=== PATIENT | female | born 1975 | race Caucasian/White ===

== ENCOUNTER 2018-08-04 10:58 | Outpatient (CLI) | payer OTHER ==
[2018-08-04 12:35] VITALS: BP 136/73; PULSE 125; RESP 18; TEMP 98.1
--- NOTE | 2018-08-12 12:45 | P.MSEPDOC ---
Presenting Problems - Arrival Data Date of Arrival on Unit: 08/04/18 Time of Arrival on Unit: 10:59 Mode of Transport: Ambulatory - Complaint Comment: nausea r/t to suboxone withdrawl Medical History - Information : 8 Para: 4 Term: 4 : 0 Abortions: Spontaneous or Elective: 3 Number of Living Children: 4 - Gestational Age Gestational Age by MARIALUISA (wks/days): 27 Weeks and 2 Days - History Complications: Multiple , Hx. Substance Abuse Review of Systems - Review of Systems Constitutional: No problems Breast: No problems ENT: No problems Cardiovascular: No problems Respiratory: No problems Gastrointestinal: No problems Genitourinary: No problems Musculoskeletal: No problems Neurological: No problems Skin: No problems Vital Signs - Temperature Temperature: 98.1 F Temperature Source: Temporal Artery Scan - Pulse Pulse Oximetery Pulse Rate: 125 Pulse Assessment Method: Pulse Oximetry - Respirations Respiratory Rate: 18 Oxygen Delivery Method: Room Air - Blood Pressure Right Arm Blood Pressure: 136/73 Blood Pressure Mean: 94 Blood Pressure Source: Automatic Cuff Medical Screen Scoring (Pre) - Cervical Exam Dilation: Exam Deferred Effacement: Exam Deferred - Uterine Contractions Frequency: N/A Duration: N/A Intensity: N/A - Maternal Vital Signs Maternal Temperature: N/A Maternal Blood Pressure: N/A Signs of Preeclampsia: N/A Maternal Respirations: N/A - Maternal Trauma Maternal Trauma: N/A - Assessment - Baby A Baseline FHR: 150 Heart Rate - NICHD Category: Category I (Normal) = 0 NST: Reactive Position: N/A - Total Score - Baby A Total Score - Baby A: 0 - Level of Risk - Baby A Level of Risk - Baby A: Low (0-5) - Pain Assessment Pain Scale Used: Numeric (1 - 10) Pain Intensity: 0 Physician Notification (Pre) - Physician Notified Physician Notified Date: 08/04/18 Physician Notified Time: 11:52 Physician/Practitioner Notifed:: dedra Spoke With: dedra New Order Received: Yes - Notification Comment Comment: reported pt visit r/t nausea from possible withdrawl from suboxone. reported twin with reactive strip and no contractions, v/s wnl. pt may be discharged home follow up with psychiatrist and OB Disposition - Disposition OB Disposition: Discharge to home Discharge Date: 08/04/18 Discharge Time: 12:05 I agree with the RN Medical Screening Exam: Yes Risk & Benefit of care provided described in d/c instruction: Yes Diagnosis: OTHER SPECIFIED COMPLICATIONS OF LABOR AND DELIVERY
== END 2018-08-04 12:05 | disposition home or self-care (01) ==
LOC: FBPOP 10:58
PROVIDERS: ATTEND Obstetrics & Gynecology Obstetrics
DX: O75.89 Other specified complications of labor and delivery (principal); Z3A.27 27 weeks gestation of pregnancy
CPT/HCPCS: 99213

== ENCOUNTER 2018-08-04 14:18 | Emergency (ER) | payer BC, OTHER ==
[2018-08-04 14:25] VITALS: BP 139/77; PULSE 99; RESP 18; TEMP 98.2
[2018-08-04] MEDS ORDERED: cloNIDine 0.3 MG/24HR PATCH TRANSDERM STA (14:42)
[2018-08-04] MEDS ORDERED: METOCLOPRAMIDE 10 MG TAB PO STA (14:45)
--- NOTE | 2018-08-04 15:12 | ED ---
General Adult HPI - General Chief complaint: Anxiety Stated complaint: Withdrawls Time Seen by Provider: 08/04/18 14:26 Source: patient, RN notes reviewed Mode of arrival: ambulatory Limitations: no limitations - History of Present Illness Initial comments: 42-year-old female currently 27 weeks with a twin gestation presents to the emergency department for a chief complaint of Suboxone withdraws. Patient states that she has been taking Suboxone off of the streets. States that she saw her psychiatrist approximately 5 days ago about this. States this was when she last used. Patient and her psychiatrist did not think she would have withdrawals as she was taking a low dose. Therefore she was prescribed naltrexone which she has not taken yet. Patient states she is nauseous having minimal vomiting. Minimal diarrhea. States she is drinking water at home. Mildly anxious. No other complaints at this time.Patient has no other compla ints at this time including shortness of breath, chest pain, abdominal pain, headache, or visual changes. - Related Data Home Medications Medication Instructions Recorded Confirmed FLUoxetine HCL [PROzac] 1 cap PO DAILY 08/04/18 08/04/18 lamoTRIgine [LaMICtal] 25 mg PO DAILY 08/04/18 08/04/18 Allergies Allergy/AdvReac Type Severity Reaction Status Date / Time Penicillins Allergy Unknown Verified 08/04/18 14:25 Review of Systems ROS Statement: Those systems with pertinent positive or pertinent negative responses have been documented in the HPI. ROS Other: All systems not noted in ROS Statement are negative. Past Medical History Past Medical History: Asthma History of Any Multi-Drug Resistant Organisms: None Reported Past Surgical History: Section, Orthopedic Surgery Past Psychological History: No Psychological Hx Reported Smoking Status: Current every day smoker Past Alcohol Use History: None Reported Past Drug Use History: Prescription Drug Abuse General Exam Limitations: no limitations General appearance: alert, in no apparent distress Head exam: Present: atraumatic, normocephalic, normal inspection Eye exam: Present: normal appearance, PERRL, EOMI. Absent: scleral icterus, conjunctival injection, periorbital swelling ENT exam: Present: normal exam, normal oropharynx, mucous membranes moist, TM's normal bilaterally, normal external ear exam Neck exam: Present: normal inspection, full ROM. Absent: tenderness, meningismus, lymphadenopathy Respiratory exam: Present: normal lung sounds bilaterally. Absent: respiratory distress, wheezes, rales, rhonchi, stridor Cardiovascular Exam: Present: regular rate, normal rhythm, normal heart sounds. Absent: systolic murmur, diastolic murmur, rubs, gallop, clicks GI/Abdominal exam: Present: soft, normal bowel sounds. Absent: distended, tenderness, guarding, rebound, rigid Neurological exam: Present: alert, oriented X3, CN II-XII intact Psychiatric exam: Present: normal affect, normal mood Course Vital Signs 08/04/18 14:20 Temperature 98.2 F Pulse Rate 99 Respiratory 18 Rate Blood Pressure 139/77 O2 Sat by Pulse 98 Oximetry Medical Decision Making - Medical Decision Making 42-year-old female presents to the emergency department for a chief complaint of Suboxone withdrawals. Patient has not used since Sunday. She has mild nausea with only a few episodes of vomiting. Mild diarrhea. No other significant complaints. Exam is unremarkable. Patient does not appear dehydrated. Discussed case with Dr. Bean. At this point patient will be given clonidine patch which is safe in . She was also given Reglan here. Currently orally hydrating. She will follow up with her [facility] psychiatrist. She was also given referrals for substance use progressed. Patient currently in a program through [facility]. She will return here should she have any worsening symptoms. Disposition Clinical Impression: Opioid withdrawal Disposition: HOME SELF-CARE Condition: Good Instructions (If sedation given, give patient instructions): Generalized Anxiety Disorder (ED), Opioid Withdrawal (ED) Additional Instructions: Please remove patch in 24 hours. Please follow-up with psychiatry an [facility] tomorrow. Return here if you have any worsening symptoms. Is patient prescribed a controlled substance at d/c from ED?: No Referrals: Eduardo Brewer DO [Primary Care Provider] - 1-2 days Time of Disposition: 15:11
== END 2018-08-04 15:15 | disposition home or self-care (01) ==
LOC: EC 14:18
DX: O99.322 Drug use complicating pregnancy, second trimester (principal); F11.23 Opioid dependence with withdrawal; O99.332 Smoking (tobacco) complicating pregnancy, second trimester; F17.200 Nicotine dependence, unspecified, uncomplicated; Z79.899 Other long term (current) drug therapy; Z88.0 Allergy status to penicillin; Z3A.27 27 weeks gestation of pregnancy
CPT/HCPCS: 99283

== ENCOUNTER 2019-10-16 16:26 | Emergency (ER) | payer BC, OTHER ==
[2019-10-16] MEDS ORDERED: SODIUM CHLORIDE 0.9% 1,000 ML IV STA (16:52)
[2019-10-16] MEDS ORDERED: ACETAMINOPHEN TAB 325 MG TAB PO STA (16:52)
[2019-10-16 17:32] VITALS: RESP 16
[2019-10-16 17:48] LABS: Basophils % (A) 1 %; Eosinophils # (A) 0.3 k/uL (0-0.7); Eosinophils % (A) 5 %; HGB 14.1 gm/dL (11.4-16.0); Lymphocytes # (A) 1.2 k/uL (1.0-4.8); Lymphocytes % (A) 22 %; MCH 31.9 pg (25.0-35.0); MCHC 32.8 g/dL (31.0-37.0); MCV 97.2 fL (80.0-100.0); Mean Platelet Volume 9.4; Monocytes # (A) 0.4 k/uL (0-1.0); Monocytes % (A) 7 %; Neutrophils # (A) 3.5 k/uL (1.3-7.7); Neutrophils % (A) 65 %; Platelet Count 179 k/uL (150-450); RBC 4.42 m/uL (3.80-5.40); WBC 5.4 k/uL (3.8-10.6)
[2019-10-16 17:54] LABS: Appearance,Urine Clear (Clear); Bacteria,Urine Rare /hpf; Bilirubin,Urine Negative (Negative); Blood,Urine Negative (Negative); Color,Urine Dark Yellow; Glucose,Urine (UA) Negative (Negative); Ketones,Urine Negative (Negative); Leukocyte Esterase,Urine Negative (Negative); Mucus,Urine Many /hpf; Nitrite,Urine Positive (Negative); Protein,Urine Negative (Negative); RBC,Urine <1 /hpf (0-5); Specific Gravity,Urine 1.017 (1.001-1.035); Squamous Epithelial Cell,Urine <1 /hpf (0-4); WBC,Urine 3 /hpf (0-5)
[2019-10-16 18:08] LABS: ALT 16 U/L (4-34); AST 22 U/L (14-36); African American GFR (CKD) >90 (>60 ml/min/1.73 sqM); Albumin 4.1 g/dL (3.5-5.0); Alkaline Phosphatase 62 U/L (38-126); Anion Gap 6 mmol/L; Blood Urea Nitrogen 9 mg/dL (7-17); Calcium 9.4 mg/dL (8.4-10.2); Carbon Dioxide 27 mmol/L (22-30); Chloride 104 mmol/L (98-107); Glucose 111 mg/dL (74-99); Lipase 27 U/L (23-300); Non-African American GFR(CKD) >90 (>60 ml/min/1.73 sqM); Potassium 4.2 mmol/L (3.5-5.1); Sodium 137 mmol/L (137-145); Total Bilirubin 0.4 mg/dL (0.2-1.3); Total Protein 6.8 g/dL (6.3-8.2)
[2019-10-16] MEDS ORDERED: methylPREDNISolone SOD SUCCI 125 MG/2 ML VIAL IV STA (18:35)
[2019-10-16] MEDS ORDERED: diphenhydrAMINE 50 MG/ML 1 ML VIAL IVP STA (18:35)
[2019-10-16] MEDS ORDERED: FAMOTIDINE 20 MG/2 ML VIAL IV STA (18:35)
[2019-10-16] MEDS ORDERED: cefTRIAXone IN SWFI 1,000 MG/10 ML SYRINGE IVP STA (18:41)
[2019-10-16] MEDS ORDERED: ONDANSETRON 4 MG/2 ML VIAL IVP STA ×2 (19:02→19:07)
--- NOTE | 2019-10-16 19:08 | ED ---
General Adult HPI - General Chief complaint: Back Pain/Injury Stated complaint: Back Pain Time Seen by Provider: 10/16/19 16:34 Source: patient, RN notes reviewed, old records reviewed Mode of arrival: ambulatory Limitations: no limitations - History of Present Illness Initial comments: 44-year-old female patient presents to ED with chief complaint right lower quadrant pain and right flank pain. Patient reports the symptoms started last 2 days. Denies any urinary symptoms. Denies any new sexual partners concern for STD. Denies any blood in urine. Denies any other acute complaints. Systemic: Pt denies fatigue, fever/chills, rash. Pt denies weakness, night sweats, weight loss. Neuro: Pt denies headache, visual disturbances, syncope or pre-syncope. HEENT: Pt denies ocular discharge or irritation, otalgia, rhinorrhea, pharyngitis or notable lymphadenopathy. Cardiopulmonary: Pt denies chest pain, SOB, heart palpitations, dyspnea on exertion. Abdominal/GI: Pt denies n/v/d. : Pt denies dysuria, burning w/ urination, frequency/urgency. Denies new onset urinary or bowel incontinence. MSK: Pt denies myalgia, loss of strength or function in extremities. Neuro: Pt denies new onset weakness, paresthesias. - Related Data Home Medications Medication Instructions Recorded Confirmed Cholecalciferol [Vitamin D3 (25 1,000 unit PO DAILY 08/04/18 08/04/18 Mcg = 1000 Iu)] FLUoxetine HCL [PROzac] 20 mg PO HS 08/04/18 08/04/18 Melatonin 3 mg PO HS PRN 08/04/18 08/04/18 Naltrexone HCl [Revia] 50 mg PO HS 08/04/18 08/04/18 Pnv,Calcium 72/Iron/Folic Acid 1 tab PO DAILY 08/04/18 08/04/18 [ Plus Tablet] lamoTRIgine [LaMICtal] See Taper PO DIRECTED 08/04/18 08/04/18 Previous Rx's Medication Instructions Recorded Cephalexin [Keflex] 500 mg PO Q6HR 7 Days #28 cap 10/16/19 Allergies Allergy/AdvReac Type Severity Reaction Status Date / Time Iodinated Contrast Media Allergy Anaphylaxis Verified 10/16/19 18:58 Penicillins Allergy Unknown Verified 10/16/19 16:32 Review of Systems ROS Statement: Those systems with pertinent positive or pertinent negative responses have been documented in the HPI. ROS Other: All systems not noted in ROS Statement are negative. Past Medical History Past Medical History: Asthma History of Any Multi-Drug Resistant Organisms: None Reported Past Surgical History: Section, Orthopedic Surgery Past Psychological History: No Psychological Hx Reported Smoking Status: Current every day smoker Past Alcohol Use History: Occasional Past Drug Use History: Marijuana General Exam - General Exam Comments Initial Comments: Constitutional: NAD, AOX3, Pt has pleasant affect. HEENT: NC/AT, trachea midline, neck supple, no lymphadenopathy. External ears appear normal, without discharge. Mucous membranes moist. EOM intact. There is no scleral icterus. No pallor noted. Cardiopulmonary: RRR, no murmurs, rubs or gallops, no JVD noted. Lungs CTAB in anterior and posterior izquierdo. No peripheral edema. Abdominal exam: Abdomen soft and non-distended. Abdomen mildly tender to palpation RLQ. Bowel sounds active in LLQ. No hepatosplenomegaly. No ecchymosis. No CVA tenderness. No focal area of tenderness to parathoracic or lumbar region. Neuro: CN II-XII grossly intact. No nuchal rigidity. MSK: Full active ROM in upper and lower extremities, 5/5 stregnth. Distal pulses intact and equal, sensation intact. Limitations: no limitations Course Vital Signs 10/16/19 10/16/19 10/16/19 16:29 17:15 19:51 Temperature 98.5 F 98.4 F 98.2 F Pulse Rate 66 86 53 L Respiratory 18 16 16 Rate Blood Pressure 117/67 124/78 134/65 O2 Sat by Pulse 99 99 99 Oximetry Medical Decision Making - Medical Decision Making 44-year-old female patient presents to ED for evaluation of right lower quadrant pain and right flank pain. Ongoing for the last 2 days. Denies any other complaints. His exam displayed very mild amount tenderness. Laboratory investigations are obtained are significant for nitrite positive urine. CT abdomen and pelvis with mild sigmoid diverticulosis no evidence of diverticulitis. Normal appendix no renal stone or obstruction. Noted also has L5-S1 spondylolisthesis and bilateral L5 spondylolysis. Patient will be treated for urinary tract infection with Keflex. Will follow up with primary care provider tomorrow. Also given orthopedic follow-up or return to ER if any worsening symptoms. Case discussed with Dr. London. - Lab Data Result diagrams: 10/16/19 17:23 10/16/19 17:23 Lab Results 10/16/19 10/16/19 10/16/19 Range/Units 17:23 17:23 17:23 WBC 5.4 (3.8-10.6) k/uL RBC 4.42 (3.80-5.40) m/uL Hgb 14.1 (11.4-16.0) gm/dL Hct 43.0 (34.0-46.0) % MCV 97.2 (80.0-100.0) fL MCH 31.9 (25.0-35.0) pg MCHC 32.8 (31.0-37.0) g/dL RDW 12.0 (11.5-15.5) % Plt Count 179 (150-450) k/uL Neutrophils % 65 % Lymphocytes % 22 % Monocytes % 7 % Eosinophils % 5 % Basophils % 1 % Neutrophils # 3.5 (1.3-7.7) k/uL Lymphocytes # 1.2 (1.0-4.8) k/uL Monocytes # 0.4 (0-1.0) k/uL Eosinophils # 0.3 (0-0.7) k/uL Basophils # 0.0 (0-0.2) k/uL Sodium (137-145) mmol/L Potassium (3.5-5.1) mmol/L Chloride (98-107) mmol/L Carbon Dioxide (22-30) mmol/L Anion Gap mmol/L BUN (7-17) mg/dL Creatinine (0.52-1.04) mg/dL Est GFR (CKD-EPI)AfAm (>60 ml/min/1.73 sqM) Est GFR (CKD-EPI)NonAf (>60 ml/min/1.73 sqM) Glucose (74-99) mg/dL Plasma Lactic Acid Royce (0.7-2.0) mmol/L Calcium (8.4-10.2) mg/dL Total Bilirubin (0.2-1.3) mg/dL AST (14-36) U/L ALT (4-34) U/L Alkaline Phosphatase (38-126) U/L Total Protein (6.3-8.2) g/dL Albumin (3.5-5.0) g/dL Lipase (23-300) U/L Urine Color Dark Yellow Urine Appearance Clear (Clear) Urine pH 8.0 (5.0-8.0) Ur Specific [place] 1.017 (1.001-1.035) Urine Protein Negative (Negative) Urine Glucose (UA) Negative (Negative) Urine Ketones Negative (Negative) Urine Blood Negative (Negative) Urine Nitrite Positive H (Negative) Urine Bilirubin Negative (Negative) Urine Urobilinogen 2.0 (<2.0) mg/dL Ur Leukocyte Esterase Negative (Negative) Urine RBC <1 (0-5) /hpf Urine WBC 3 (0-5) /hpf Ur Squamous Epith Cells <1 (0-4) /hpf Urine Bacteria Rare H (None) /hpf Urine Mucus Many H (None) /hpf Urine HCG, Qual Not Detected (Not Detectd) 10/16/19 10/16/19 Range/Units 17:23 17:23 WBC (3.8-10.6) k/uL RBC (3.80-5.40) m/uL Hgb (11.4-16.0) gm/dL Hct (34.0-46.0) % MCV (80.0-100.0) fL MCH (25.0-35.0) pg MCHC (31.0-37.0) g/dL RDW (11.5-15.5) % Plt Count (150-450) k/uL Neutrophils % % Lymphocytes % % Monocytes % % Eosinophils % % Basophils % % Neutrophils # (1.3-7.7) k/uL Lymphocytes # (1.0-4.8) k/uL Monocytes # (0-1.0) k/uL Eosinophils # (0-0.7) k/uL Basophils # (0-0.2) k/uL Sodium 137 (137-145) mmol/L Potassium 4.2 (3.5-5.1) mmol/L Chloride 104 (98-107) mmol/L Carbon Dioxide 27 (22-30) mmol/L Anion Gap 6 mmol/L BUN 9 (7-17) mg/dL Creatinine 0.60 (0.52-1.04) mg/dL Est GFR (CKD-EPI)AfAm >90 (>60 ml/min/1.73 sqM) Est GFR (CKD-EPI)NonAf >90 (>60 ml/min/1.73 sqM) Glucose 111 H (74-99) mg/dL Plasma Lactic Acid Royce 1.1 (0.7-2.0) mmol/L Calcium 9.4 (8.4-10.2) mg/dL Total Bilirubin 0.4 (0.2-1.3) mg/dL AST 22 (14-36) U/L ALT 16 (4-34) U/L Alkaline Phosphatase 62 (38-126) U/L Total Protein 6.8 (6.3-8.2) g/dL Albumin 4.1 (3.5-5.0) g/dL Lipase 27 (23-300) U/L Urine Color Urine Appearance (Clear) Urine pH (5.0-8.0) Ur Specific [place] (1.001-1.035) Urine Protein (Negative) Urine Glucose (UA) (Negative) Urine Ketones (Negative) Urine Blood (Negative) Urine Nitrite (Negative) Urine Bilirubin (Negative) Urine Urobilinogen (<2.0) mg/dL Ur Leukocyte Esterase (Negative) Urine RBC (0-5) /hpf Urine WBC (0-5) /hpf Ur Squamous Epith Cells (0-4) /hpf Urine Bacteria (None) /hpf Urine Mucus (None) /hpf Urine HCG, Qual (Not Detectd) Disposition Clinical Impression: UTI (urinary tract infection), Flank pain Disposition: HOME SELF-CARE Condition: Stable Instructions (If sedation given, give patient instructions): Urinary Tract Infection in Women (ED), Flank Pain (ED) Additional Instructions: Taken antibiotics as directed. Follow up with PCP tomorrow. Follow up with orthopedic consult tomorrow. Return to ED with any worsening symptoms. Prescriptions: Cephalexin [Keflex] 500 mg PO Q6HR 7 Days #28 cap Is patient prescribed a controlled substance at d/c from ED?: No Referrals: Eduardo Brewer DO [Primary Care Provider] - 1-2 days Lazaro Lincoln PAC [PHYSICIAN [employer]] - 1-2 days
--- NOTE | 2019-10-16 19:24 | CT ---
EXAMINATION TYPE: CT abdomen pelvis w con DATE OF EXAM: 10/16/2019 COMPARISON: None HISTORY: Flank pain CT DLP: 1410.8 mGycm Automated exposure control for dose reduction was used. CONTRAST: Performed with IV Contrast, patient injected with 100 mL of Isovue 300. Lung bases are clear. There is no pleural effusion. Heart size is normal. Liver spleen stomach pancreas gallbladder appear normal. Bile ducts are not dilated. There is no adrenal mass. Kidneys show satisfactory contrast opacification. There is no hydronephrosi s. Ureters are not dilated. There is 1.5 cm cortical cyst medial right kidney. There is no retroperit lee adenopathy. Bladder distends smoothly. Uterus is anteverted. There is no evidence of a pelvic m ass. There is no free fluid in the pelvis. There is a first-degree L5-S1 spondylolisthesis. There is bilateral L5 spondylolysis. Delayed images show normal renal excretion. Bony pelvis is intact. Hip joints appear normal. There is no mesenteric edema. There is no ascites or free air. There is no sign of a bowel obstructio n. There are multiple sigmoid diverticula. There is no sign of diverticulitis. Appendix is posterior and medial and appears normal. IMPRESSION: Mild sigmoid diverticulosis. No evidence of diverticulitis. Normal appendix. No renal stone or obstru ction.
[2019-10-16] MEDS ORDERED: SODIUM CHLORIDE 0.9% 500 ML 500 ML IV ONE (19:38)
[2019-10-16] MEDS ORDERED: KETOROLAC 15 MG/ML 1 ML VIAL IVP STA (19:42)
[2019-10-16 19:53] VITALS: BP 134/65; PULSE 53; TEMP 98.2
== END 2019-10-16 20:49 | disposition home or self-care (01) ==
LOC: EC 16:26
DX: M43.17 Spondylolisthesis, lumbosacral region (principal); N39.0 Urinary tract infection, site not specified; K57.30 Diverticulosis of large intestine without perforation or abscess without bleeding; F17.200 Nicotine dependence, unspecified, uncomplicated; Z79.899 Other long term (current) drug therapy; Z88.0 Allergy status to penicillin; Z91.041 Radiographic dye allergy status
CPT/HCPCS: 99284; 96374; 96375 ×4; 96361; 36415; 80053; 83605; 83690; 85025; 81001; 81025; 87086; 74177; J1200; J2930; J0696; J1885; Q9967

== ENCOUNTER → 2021-07-18 | Outpatient (CLI) | payer SELFPAY ==
[2021-07-18 17:09] LABS: Appearance,Urine Clear (Clear); Bilirubin,Urine Negative (Negative); Blood,Urine Negative (Negative); Color,Urine Yellow; Glucose,Urine (UA) Negative (Negative); Ketones,Urine Negative (Negative); Leukocyte Esterase,Urine Negative (Negative); Nitrite,Urine Negative (Negative); PH, Urine 5.5 (5.0-8.0); Protein,Urine Negative (Negative); Specific Gravity,Urine 1.028 (1.001-1.035); Urobilinogen,Urine <2.0 mg/dL (<2.0)
[2021-07-18 18:30] LABS: Basophils # (A) 0.02 X 10*3/uL (0.00-0.10); Basophils % (A) 0.6 %; Eosinophils # (A) 0.22 X 10*3/uL (0.04-0.35); HCT 35.7 % (37.2-46.3); HGB 11.4 g/dL (12.0-15.0); Immature Grans, Automated 0.3 %; Lymphocytes # (A) 1.17 X 10*3/uL (0.90-5.00); Lymphocytes % (A) 37.4 %; MCH 31.9 pg (27.0-32.0); MCHC 31.9 g/dL (32.0-37.0); Mean Platelet Volume 12.1 fL (9.5-12.2); Monocytes # (A) 0.24 X 10*3/uL (0.20-1.00); Monocytes % (A) 7.7 %; NRBC Per 100 WBC 0 /100 WBCS (0.0-0.0); Neutrophils # (A) 1.47 X 10*3/uL (1.80-7.70); Platelet Count 133 X 10*3/uL (140-440); RBC 3.57 X 10*6/uL (4.10-5.20); RDW 12.1 % (11.5-14.5); WBC 3.13 X 10*3/uL (4.50-10.00)
[2021-07-18 18:35] LABS: ALT 60 U/L (8-44); AST 40 U/L (13-35); African American GFR (CKD) 130.4 (60.0-200.0); Albumin/Globulin Ratio 1.63 (1.60-3.17); Alkaline Phosphatase 75 U/L (41-126); BUN/Creat Ratio 18.94 Ratio (12.00-20.00); Blood Urea Nitrogen 11.1 mg/dL (9.0-27.0); Calcium 8.5 mg/dL (8.7-10.3); Carbon Dioxide 25.3 mmol/L (20.0-27.5); Chloride 106 mmol/L (96-109); Globulin 2.4 g/dL (1.6-3.3); Glucose 89 mg/dL (70-110); Non-African American GFR(CKD) 112.5 (60.0-200.0); Sodium 140 mmol/L (135-145); Total Bilirubin <0.15 mg/dL (0.30-1.20); Total Protein 6.4 g/dL (6.2-8.2)
[2021-07-18 18:42] LABS: Hepatitis A Antibody IgM Nonreactive (Nonreactive); Hepatitis B Core IgM Nonreactive (Nonreactive); Hepatitis B Surface Antigen Nonreactive (Nonreactive); Hepatitis C IgG Antibody Nonreactive (Nonreactive)
[2021-07-18 21:43] LABS: HIV 2 AB Non-Reactive (Non-Reactive); HIV AB P24 Non-Reactive (Non-Reactive); HIV P24 AG Non-Reactive (Non-Reactive)
[2021-07-18 23:25] LABS: Urine Alcohol Negative (Negative); Urine Barbiturate Negative (Negative); Urine Cocaine Negative (Negative); Urine Methadone Negative (Negative); Urine Opiates Negative (Negative); Urine Phencyclidine Negative (Negative)
== END | disposition home or self-care (01) ==
LOC: LABWHC1 13:21
DX: F11.20 Opioid dependence, uncomplicated (principal)
CPT/HCPCS: 36415; 80053; 80074; 80306; 81003; 81025; 85025; 86780; 87390

== ENCOUNTER 2023-09-21 12:47 | Emergency (ER) | payer OTHER ==
[2023-09-21 13:17] VITALS: RESP 18
--- NOTE | 2023-09-21 13:25 | ED ---
Lower Extremity Injury HPI - General Chief Complaint: Extremity Injury, Lower Stated Complaint: L leg pain/swelling Time Seen by Provider: 09/21/23 13:02 Source: patient, RN notes reviewed Mode of arrival: ambulatory Limitations: no limitations - History of Present Illness Initial Comments: This is a 47-year-old female presents emergency department chief complaint of left lower extremity swelling and pain. Patient states that roughly 1 month ago she was injured when she was walking her dog that hit her left knee. She states that since this time she has been experiencing pain to the left knee. Currently, she states that over the past few weeks she has noticed edema of the left lower extremity. Patient states that she was sent by urgent care to be evaluated for potential blood clot. Patient is denying symptoms of chest pain, chest pressure, shortness of breath, heart palpitations. She denies recent prolonged travel, history of DVT, estrogen use. - Related Data Home Medications Medication Instructions Recorded Confirmed Cholecalciferol [Vitamin D3 (25 1,000 unit PO DAILY 08/04/18 08/04/18 Mcg = 1000 Iu)] FLUoxetine HCL [PROzac] 20 mg PO HS 08/04/18 08/04/18 Melatonin 3 mg PO HS PRN 08/04/18 08/04/18 Naltrexone HCl [Revia] 50 mg PO HS 08/04/18 08/04/18 Vit No.180/Iron/Folic 1 tab PO DAILY 08/04/18 08/04/18 [ Plus Tablet] lamoTRIgine [LaMICtal] See Taper PO DIRECTED 08/04/18 08/04/18 Previous Rx's Medication Instructions Recorded Cephalexin [Keflex] 500 mg PO Q6HR 7 Days #28 cap 10/16/19 Allergies Allergy/AdvReac Type Severity Reaction Status Date / Time Iodinated Contrast Media Allergy Anaphylaxis Verified 09/21/23 13:17 Penicillins Allergy Unknown Verified 09/21/23 13:17 Review of Systems ROS Statement: Those systems with pertinent positive or pertinent negative responses have been documented in the HPI. ROS Other: All systems not noted in ROS Statement are negative. Past Medical History Past Medical History: Asthma History of Any Multi-Drug Resistant Organisms: None Reported Past Surgical History: Section, Orthopedic Surgery Past Psychological History: No Psychological Hx Reported Smoking Status: Current every day smoker Past Alcohol Use History: Occasional Past Drug Use History: Marijuana General Exam Limitations: no limitations General appearance: alert, in no apparent distress Head exam: Present: atraumatic, normocephalic, normal inspection Eye exam: Present: normal appearance, PERRL, EOMI. Absent: scleral icterus, conjunctival injection, periorbital swelling ENT exam: Present: normal exam, mucous membranes moist Neck exam: Present: normal inspection. Absent: tenderness, meningismus, lymphadenopathy Respiratory exam: Present: normal lung sounds bilaterally. Absent: respiratory distress, wheezes, rales, rhonchi, stridor Cardiovascular Exam: Present: regular rate, normal rhythm, normal heart sounds. Absent: systolic murmur, diastolic murmur, rubs, gallop, clicks GI/Abdominal exam: Present: soft, normal bowel sounds. Absent: distended, tenderness, guarding, rebound, rigid Left Knee exam: Present: normal inspection, full ROM, tenderness (.), full knee extension Lower Leg exam: Present: tenderness (posterior) Neurovascular tendon exam: Present: no vascular compromise. Absent: abnormal cap refill Gait: observed and normal Back exam: Present: normal inspection Neurological exam: Present: alert, oriented X3, CN II-XII intact Skin exam: Present: warm, dry, intact, normal color. Absent: rash Course Vital Signs 09/21/23 09/21/23 13:13 15:47 Temperature 97.9 F 98.1 F Pulse Rate 99 86 Respiratory 18 18 Rate Blood Pressure 106/73 121/83 O2 Sat by Pulse 96 98 Oximetry Medical Decision Making - Medical Decision Making Was pt. sent in by a medical professional or institution (, PA, SENIOR QA ENGINEER, urgent care, hospital, or detention...) When possible be specific @ -Was referred by urgent care to be evaluated for potential DVT of the left lower extremity. Did you speak to anyone other than the patient for history (EMS, parent, family, police, friend...)? What history was obtained from this source @ -No Did you review nursing and triage notes (agree or disagree)? Why? @ -I reviewed and agree with nursing and triage notes Were old charts reviewed (outside hosp., previous admission, EMS record, old EKG, old radiological studies, urgent care reports/EKG's, detention records)? Report findings @ -No old charts were reviewed Differential Diagnosis (chest pain, altered mental status, abdominal pain women, abdominal pain men, vaginal bleeding, weakness, fever, dyspnea, syncope, headache, dizziness, GI bleed, back pain, seizure, CVA, palpatations, mental health, musculoskeletal)? @ -Was pt. sent in by a medical professional or institution (ASHLEE Archer, SENIOR QA ENGINEER, urgent care, hospital, or detention...) When possible be specific @ -No Did you speak to anyone other than the patient for history (EMS, parent, family, police, friend...)? What history was obtained from this source @ -No Did you review nursing and triage notes (agree or disagree)? Why? @ -I reviewed and agree with nursing and triage notes Were old charts reviewed (outside hosp., previous admission, EMS record, old EKG, old radiological studies, urgent care reports/EKG's, detention records)? Report findings @ -No old charts were reviewed Differential Diagnosis (chest pain, altered mental status, abdominal pain women, abdominal pain men, vaginal bleeding, weakness, fever, dyspnea, syncope, headache, dizziness, GI bleed, back pain, seizure, CVA, palpatations, mental health, musculoskeletal)? @ -Differential Musculoskeletal Muscular strain, contusion, ligament sprain, fracture, arthritis, septic arthritis, bursitis, cellulitis, muscle spasm, nerve compression, DVT, arterial occlusion, herpes zoster, electrolyte abnormality, tumor.... This is not meant to be in all inclusive list EKG interpreted by me (3pts min.). @ -none X-rays interpreted by me (1pt min.). @ -X-ray of the left knee reveals no acute process CT interpreted by me (1pt min.). @ -None done U/S interpreted by me (1pt. min.). @ -Next ultrasound of the left lower extremity no evidence for DVT. What testing was considered but not performed or refused? (CT, X-rays, U/S, labs)? Why? @ -None What meds were considered but not given or refused? Why? @ -None Did you discuss the management of the patient with other professionals (professionals i.e. ASHLEE Archer, SENIOR QA ENGINEER, lab, RT, psych nurse, elementary school social worker, equipment washer, teacher, custom protection officer, rn case mgr)? Give summary @ -No Was smoking cessation discussed for >3mins.? @ -No Was critical care preformed (if so, how long)? @ -No Were there social determinants of health that impacted care today? How? (Homelessness, low income, unemployed, alcoholism, drug addiction, transportation, low edu. Level, literacy, decrease access to med. care, long term, rehab)? @ -No Was there de-escalation of care discussed even if they declined (Discuss DNR or withdrawal of care, Hospice)? DNR status @ -No What co-morbidities impacted this encounter? (DM, HTN, Smoking, COPD, CAD, Cancer, CVA, ARF, Chemo, Hep., AIDS, mental health diagnosis, sleep apnea, morbid obesity)? @ -None Was patient admitted / discharged? Hospital course, mention meds given and route , prescriptions, significant lab abnormalities, going to OR and other pertinent info. @ -discharged. 47-year-old female with knee and left lower extremity pain. Patient vitals are stable upon arrival. She has no risks concerning for PE therefore labs are deferred. Patient will be sent for x-ray and ultrasound. X- ray and ultrasound are negative for acute process. Recommend the patient continue to use supportive treatment at home and compression stockings and rest the affected leg when she is not ambulating. All questions answered at bedside and strict return parameters hima the patient was verbalized understanding. Case discussed with Dr. Jonas Undiagnosed new problem with uncertain prognosis? @ -No Drug Therapy requiring intensive monitoring for toxicity (Heparin, Nitro, Insulin, Cardizem)? @ -No Were any procedures done? @ -No Diagnosis/symptom? @ -Left calf pain, muscle strain Acute, or Chronic, or Acute on Chronic? @ -acute Uncomplicated (without systemic symptoms) or Complicated (systemic symptoms)? @ -Uncomplicated Side effects of treatment? @ -No Exacerbation, Progression, or Severe Exacerbation? @ -No Poses a threat to life or bodily function? How? (Chest pain, [place], [place], pneumonia, PE, COPD, DKA, ARF, appy, cholecystitis, CVA, Diverticulitis, Homicidal, Suicidal, threat to staff... and all critical care pts) @ -No Disposition Clinical Impression: Pain of left calf, Muscle strain Disposition: HOME SELF-CARE Condition: Good Instructions (If sedation given, give patient instructions): Muscle Strain (DC) Additional Instructions: Return to the emergency department if symptoms worsen or do not improve. continue supportive treatment at home with tylenol, motrin, compression and ice/elevate. Is patient prescribed a controlled substance at d/c from ED?: No Referrals: Analisa Mcgarry FNPBC [REFERRING] - 1-2 days Time of Disposition: 15:26
--- NOTE | 2023-09-21 13:58 | US ---
EXAMINATION TYPE: US venous doppler duplex LE LT DATE OF EXAM: 09/21/2023 1:48 PM COMPARISON: NONE CLINICAL INDICATION: Female, 47 years old with history of swollen left calf; Left calf pain and swell ing SIDE PERFORMED: Left TECHNIQUE: The lower extremity deep venous system is examined utilizing real time linear array sonog shreya with graded compression, doppler sonography and color-flow sonography. VESSELS IMAGED: Common Femoral Vein Deep Femoral Vein Greater Saphenous Vein * Femoral Vein Popliteal Vein Small Saphenous Vein * Proximal Calf Veins (* superficial vessels) Left Leg: Appears negative for DVT Left popliteal fossa: 7.0 x 2.0 x 3.2cm complex cystic area IMPRESSION: Grayscale, color doppler, spectral doppler imaging performed of the deep veins of the lo wer extremities. There is normal flow, compressibility, vascular waveforms.
--- NOTE | 2023-09-21 14:40 | XR ---
EXAMINATION TYPE: XR knee complete LT DATE OF EXAM: 09/21/2023 COMPARISON: NONE HISTORY: Pain TECHNIQUE: 3 views of the left ankle are submitted for evaluation. FINDINGS: There is no evidence for fracture or dislocation. Ankle mortise is intact. Soft tissues are within normal limits. IMPRESSION: 1. No evidence for acute fracture.
[2023-09-21 15:48] VITALS: BP 121/83; PULSE 86; TEMP 98.1
== END 2023-09-21 15:51 | disposition home or self-care (01) ==
LOC: EC 12:47
DX: S86.912A Strain of unspecified muscle(s) and tendon(s) at lower leg level, left leg, initial encounter (principal); F17.200 Nicotine dependence, unspecified, uncomplicated; Z88.0 Allergy status to penicillin; Z88.8 Allergy status to other drugs, medicaments and biological substances; W54.1XXA Struck by dog, initial encounter
CPT/HCPCS: 99284